=== PATIENT | female | born 1965 | race Caucasian/White ===

== ENCOUNTER 2018-01-09 01:17 | Emergency (ER) | payer BC ==
[2018-01-09 01:51] LABS: Absolute Lymphocytes (CBC) 2.7 K/uL (0.7-4.9); Absolute Monocytes 0.6 K/uL (0.1-1.3); Absolute Neutrophil 4.1 K/uL (1.8-8.0); Basophils % 0.6 % (0-1.3); Eosinophils % 4.8 % (0-4.4); Hematocrit 38.2 % (36.0-45.0); Lymphocytes % 34.7 % (15.3-44.8); MCH 30.8 pg (27.0-35.0); MCV 90.5 fL (80-100); MPV 8.1 fL (7.6-11.3); RBC Red Blood Cell Count 4.22 M/uL (3.86-4.86)
[2018-01-09 02:04] LABS: BUN Blood Urea Nitrogen 16 mg/dL (7-18); Bicarbonate 25 mmol/L (21-32); Glucose Level 103 mg/dL (74-106); Potassium 3.6 mmol/L (3.5-5.1); Sodium Level 145 mmol/L (136-145)
[2018-01-09] MEDS ORDERED: KETOROLAC 30 MG/ML INJ ONE ×2 (02:27→03:24)
[2018-01-09 03:38] LABS: Urine Blood NEGATIVE (NEG); Urine Glucose NEGATIVE (NEG); Urine Protein NEGATIVE (NEG); Urine pH 5.5 (5.0-7.0)
--- NOTE | 2018-01-09 04:23 | EDPHYS ---
Physician Documentation [facility] Name: Ludy Hernandez Age: 52 yrs Sex: Female : 1965 Arrival Date: 01/09/2018 Time: 01:20 Bed 5 Private MD: ED Physician Chava Miranda HPI: 01/09 04:32 This 52 yrs old Female presents to ER via Ambulatory with complaints of Back gs Pain. 04:32 The patient presents with pain that is acute. The symptoms are located in the thoracic gs area. Onset: The symptoms/episode began/occurred acutely, this morning. The pain does not radiate. Associated signs and symptoms: Pertinent negatives: nausea, vomiting, sob. Modifying factors: the patient symptoms are aggravated by movement, deep breath. Severity of symptoms: At their worst the symptoms were moderate, in the emergency department the symptoms are unchanged. The patient has not experienced similar symptoms in the past. 04:32 Associated signs and symptoms: Pertinent negatives: incontinence. 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 - Social history:: Smoking status: Patient/guardian denies using tobacco, the patient reports quitting approximately .2 years ago. - Ebola Screening: : Patient negative for fever greater than or equal to 101.5 degrees Fahrenheit, and additional compatible Ebola Virus Disease symptoms Patient denies exposure to infectious person Patient denies travel to an Ebola-affected area in the 21 days before illness onset. ROS: 04:32 All other systems are negative. gs Exam: 04:32 Head/Face: Normocephalic, atraumatic. Eyes: Pupils equal round and reactive to light, gs extra-ocular motions intact. Lids and lashes normal. Conjunctiva and sclera are non-icteric and not injected. Cornea within normal limits. Periorbital areas with no swelling, redness, or edema. ENT: Nares patent. No nasal discharge, no septal abnormalities noted. Tympanic membranes are normal and external auditory canals are clear. Oropharynx with no redness, swelling, or masses, exudates, or evidence of obstruction, uvula midline. Mucous membranes moist. Neck: Trachea midline, no thyromegaly or masses palpated, and no cervical lymphadenopathy. Supple, full range of motion without nuchal rigidity, or vertebral point tenderness. No Meningismus. Chest/axilla: Normal chest wall appearance and motion. Nontender with no deformity. No lesions are appreciated. Cardiovascular: Regular rate and rhythm with a normal S1 and S2. No gallops, murmurs, or rubs. Normal PMI, no JVD. No pulse deficits. Respiratory: Lungs have equal breath sounds bilaterally, clear to auscultation and percussion. No rales, rhonchi or wheezes noted. No increased work of breathing, no retractions or nasal flaring. Abdomen/GI: Soft, non-tender, with normal bowel sounds. No distension or tympany. No guarding or rebound. No evidence of tenderness throughout. Skin: Warm, dry with normal turgor. Normal color with no rashes, no lesions, and no evidence of cellulitis. MS/ Extremity: Pulses equal, no cyanosis. Neurovascular intact. Full, normal range of motion. Neuro: Awake and alert, GCS 15, oriented to person, place, time, and situation. Cranial nerves II-XII grossly intact. Motor strength 5/5 in all extremities. Sensory grossly intact. Cerebellar exam normal. Normal gait. 04:32 Constitutional: The patient appears alert, awake. 04:32 Back: pain, that is mild, of the thoracic area. 04:32 ECG was reviewed by the Attending Physician. Vital Signs: 01:20 BP 154 / 75; Pulse 74; Resp 24; Temp 98.4(O); Pulse Ox 99% on R/A; Weight 68.04 kg (R); Height 5 ft. 3 in. (160.02 cm) (R); Pain 3/10; 02:00 BP 147 / 61; Pulse 59; Resp 14; Pulse Ox 97% on R/A; ak1 02:33 BP 103 / 50; Pulse 57; Resp 14; Temp 98.4(O); Pulse Ox 97% on R/A; Pain 0/10; ak1 03:44 BP 104 / 50; Pulse 56; Resp 14; Temp 98.2; Pulse Ox 99% ; Pain 3/10; ak1 01:20 Body Mass Index 26.57 (68.04 kg, 160.02 cm) fc MDM: 01:35 Patient medically screened. 04:32 Differential diagnosis: Ligament Injury ruptured disc, pe,cad. Data reviewed: vital gs signs, nurses notes. Response to treatment: the patient's symptoms have resolved after treatment, and as a result, I will discharge patient. 01/09 01:36 Order name: Basic Metabolic Panel 01/09 01:36 Order name: CBC with Diff 01/09 01:36 Order name: Troponin (emerg Dept Use Only); Complete Time: 02:45 01/09 01:36 Order name: D-Dimer; Complete Time: 02:02 01/09 01:36 Order name: Basic Metabolic Panel; Complete Time: 02:45 EDMS 01/09 01:36 Order name: CBC with Automated Diff; Complete Time: 02:02 EDMS 01/09 01:36 Order name: XRAY Chest (1 view) 01/09 01:36 Order name: EKG; Complete Time: 01:36 gs 01/09 01:36 Order name: Cardiac monitoring; Complete Time: 01:42 01/09 01:36 Order name: EKG - Nurse/Tech; Complete Time: 01:42 01/09 02:52 Order name: Troponin (emerg Dept Use Only); Complete Time: 04:21 ak1 01/09 03:17 Order name: Urine Dipstick--Ancillary (enter results); Complete Time: 04:21 ms 01/09 01:36 Order name: IV Saline Lock; Complete Time: 01:42 01/09 01:36 Order name: Labs collected and sent; Complete Time: 01:42 01/09 01:36 Order name: O2 Per Protocol; Complete Time: :42 01/09 01:36 Order name: O2 Sat Monitoring; Complete Time: :42 01/09 01:36 Order name: Urine Dipstick-Ancillary (obtain specimen); Complete Time: 03:15 gs EC:32 Rate is 63 beats/min. Rhythm is regular. HI interval is normal. QRS interval is normal. gs QT interval is normal. T waves are Flattened in leads aVL, V2. Clinical impression: Abnormal EKG without significant change. Interpreted by me. Administered Medications: 02:24 Not Given (Patient Refused): TORadol 30 mg IVP once ao 03:22 Drug: TORadol 30 mg Route: IVP; Site: right antecubital; ak1 03:58 Follow up: Response: No adverse reaction ak1 Disposition: 01/09/18 04:22 Discharged to Home. Impression: Dorsalgia, Chest pain, unspecified. - Condition is Stable. - Discharge Instructions: Back Pain, Adult, Nonspecific Chest Pain. - Medication Reconciliation Form, Thank You Letter, Antibiotic Education, Prescription Opioid Use form. - Follow up: Private Physician; When: 2 - 3 days; Reason: Re-evaluation by your physician. Signatures: Dispatcher [employer] EDMS Marcella Tanner RN RN Catie Graves RN RN ak1 Chava Miranda MD MD gs Ortiz, Alex RN ao Corrections: (The following items were deleted from the chart) 04:30 04:22 01/09/2018 04:22 Discharged to Home. Impression: Dorsalgia; Chest pain, ak1 unspecified. Condition is Stable. Forms are Medication Reconciliation Form, Thank You Letter, Antibiotic Education, Prescription Opioid Use. Follow up: Private Physician; When: 2 - 3 days; Reason: Re-evaluation by your physician. [email or web address]
--- NOTE | 2018-01-09 04:23 | ER ---
Nurse's Notes [facility] Name: Ludy Hernandez Age: 52 yrs Sex: Female : 1965 Arrival Date: 01/09/2018 Time: 01:20 Bed 5 Private MD: Diagnosis: Dorsalgia;Chest pain, unspecified Presentation: 01/09 01:20 Presenting complaint: Patient states: that all day she has been feeling as if she fc cannot take a deep breath. Then at 2100 last night she started to have a back pain that was worse as she was laying down. Does also having tingling of both hands, indigestion and heartburn. Transition of care: patient was not received from another setting of care. Onset of symptoms was January 08, 2018. Risk Assessment: Do you want to hurt yourself or someone else? Patient reports no desire to harm self or others. Initial Sepsis Screen: Does the patient meet any 2 criteria? No. Patient's initial sepsis screen is negative. Does the patient have a suspected source of infection? No. Patient's initial sepsis screen is negative. Care prior to arrival: None. 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 - Social history:: Smoking status: Patient/guardian denies using tobacco, the patient reports quitting approximately .2 years ago. - Ebola Screening: : Patient negative for fever greater than or equal to 101.5 degrees Fahrenheit, and additional compatible Ebola Virus Disease symptoms Patient denies exposure to infectious person Patient denies travel to an Ebola-affected area in the 21 days before illness onset. Screenin:20 Abuse screen: Denies threats or abuse. Nutritional screening: No deficits noted. fc Tuberculosis screening: No symptoms or risk factors identified. Fall Risk None identified. Assessment: 01:43 General: Appears uncomfortable, Behavior is calm, cooperative. Pain: Complains of pain ak1 in thoracic area Pain does not radiate. Pain began 4 hours ago. Neuro: No deficits noted. Cardiovascular: Denies. Respiratory: Reports shortness of breath since 2100. GI: No signs and/or symptoms were reported involving the gastrointestinal system. : No signs and/or symptoms were reported regarding the genitourinary system. EENT: No signs and/or symptoms were reported regarding the EENT system. Derm: No signs and/or symptoms reported regarding the dermatologic system. Musculoskeletal: No signs and/or symptoms reported regarding the musculoskeletal system. 02:24 Reassessment: Patient refused Toradol and stated that she is not in pain. Dr Miranda was ao notified. 03:43 Reassessment: Patient appears in no apparent distress at this time. Patient is alert, ak1 oriented x 3, equal unlabored respirations, skin warm/dry/pink. Patient states feeling better. Patient states symptoms have improved. pt informed of wait for repeat lab work results. . Vital Signs: 01:20 BP 154 / 75; Pulse 74; Resp 24; Temp 98.4(O); Pulse Ox 99% on R/A; Weight 68.04 kg (R); fc Height 5 ft. 3 in. (160.02 cm) (R); Pain 3/10; 02:00 BP 147 / 61; Pulse 59; Resp 14; Pulse Ox 97% on R/A; ak1 02:33 BP 103 / 50; Pulse 57; Resp 14; Temp 98.4(O); Pulse Ox 97% on R/A; Pain 0/10; ak1 03:44 BP 104 / 50; Pulse 56; Resp 14; Temp 98.2; Pulse Ox 99% ; Pain 3/10; ak1 01:20 Body Mass Index 26.57 (68.04 kg, 160.02 cm) fc ED Course: 01:20 Patient arrived in ED. es 01:20 Arm band placed on Patient placed in an exam room, on a stretcher. fc 01:20 Patient has correct armband on for positive identification. Placed in gown. Bed in low fc position. Call light in reach. ekg monitor tech on. Pulse ox on. NIBP on. 01:24 Chava Miranda MD is Attending Physician. gs 01:26 Triage completed. fc 01:42 Catie Graves, RN is Primary Nurse. ak1 01:43 Inserted saline lock: 20 gauge in right antecubital area, using aseptic technique. ak1 Blood collected. Patient maintains SpO2 saturation greater than 95% on room air. 02:13 X-ray completed. Portable x-ray completed in exam room. Patient tolerated procedure kw well. 02:14 XRAY Chest (1 view) In Process Unspecified. EDMS 03:44 No provider procedures requiring assistance completed. ak1 04:25 IV discontinued, intact, bleeding controlled, No redness/swelling at site. ak1 Administered Medications: 02:24 Not Given (Patient Refused): TORadol 30 mg IVP once ao 03:22 Drug: TORadol 30 mg Route: IVP; Site: right antecubital; ak1 03:58 Follow up: Response: No adverse reaction ak1 Outcome: 04:22 Discharge ordered by . gs 04:24 Discharged to home ambulatory, with family. ak1 04:24 Condition: improved 04:29 Discharge instructions given to patient, family, Instructed on discharge instructions, ak1 follow up and referral plans. Demonstrated understanding of instructions, follow-up care. 04:30 Patient left the ED. ak1 Signatures: Dispatcher [employer] EDMS Lala Ortiz Felicia, RN RN fc Whitley, Kimberlee kw Krenek, Amber, RN RN ak1 Liam Izaguirre RN RN ao Starr, Gregory, MD MD
--- NOTE | 2018-01-09 05:40 | EKG ---
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
--- NOTE | 2018-01-09 08:00 | RAD REPORT ---
EXAM DESCRIPTION: Renan Single View01/09/2018 2:14 am CLINICAL HISTORY: Chest pain COMPARISON: none FINDINGS: The lungs appear clear of acute infiltrate. The heart is normal size IMPRESSION: No acute abnormalities displayed
== END 2018-01-09 04:30 | disposition home or self-care (01) ==
LOC: ER 01:17
DX: R07.9 Chest pain, unspecified (principal); E03.9 Hypothyroidism, unspecified; Z88.0 Allergy status to penicillin
CPT/HCPCS: 36415; 71045; 80048; 81003; 84484; 85025; 85379; 93005; 96374; 99285